=== PATIENT | female | born 1985 | race American Indian/Alaskan Native ===

== ENCOUNTER 2017-09-11 15:54 | Emergency (ER) | payer MEDICAID ==
--- NOTE | 2017-09-11 17:48 | C.PDOC ---
History Of Present Illness 31 year old female presents to the ED c/o lower abdominal pain, pelvic pain and irritation for the past week. Patient also reports slight vaginal d/c with foul odor. Patient states she is sexually active with 1 partner. Patient denies fever , back pain, nausea, vomit, urinary symptoms, recent antibiotic use. Time Seen by Provider: 09/11/17 16:54 Chief Complaint (Nursing): Female Genitourinary History Per: Patient History/Exam Limitations: no limitations Onset/Duration Of Symptoms: Days Current Symptoms Are (Timing): Still Present Quality Of Discomfort: "Pain" Associated Symptoms: Other (Vaginal d/c) Alleviating Factors: None Recent travel outside of the [place]: No Additional History Per: Patient Abnormal Vaginal Bleeding: No Past Medical History Reviewed: Historical Data, Nursing Documentation, Vital Signs Vital Signs: Last Vital Signs Temp 97.9 F 09/11/17 18:29 Pulse 73 09/11/17 18:29 Resp 16 09/11/17 18:29 BP 141/95 H 09/11/17 18:29 Pulse Ox 100 09/11/17 18:29 - Medical History PMH: Asthma Surgical History: No Surg Hx Family History: States: Unknown Family Hx - Social History Hx Tobacco Use: Yes Hx Alcohol Use: Yes Hx Substance Use: No - Immunization History Hx Tetanus Toxoid Vaccination: Yes Hx Influenza Vaccination: No Hx Pneumococcal Vaccination: No Review Of Systems Constitutional: Negative for: Fever, Chills Cardiovascular: Negative for: Chest Pain Respiratory: Negative for: Cough, Shortness of Breath Gastrointestinal: Positive for: Abdominal Pain (Lower ). Negative for: Nausea, Vomiting Genitourinary: Positive for: Vaginal Discharge (slight), Pelvic Pain. Negative for: Dysuria, Vaginal Bleeding Musculoskeletal: Negative for: Back Pain Neurological: Negative for: Weakness, Numbness Physical Exam - Physical Exam Appears: Non-toxic, No Acute Distress Skin: Normal Color, Warm, Dry Head: Atraumatic, Normacephalic Oral Mucosa: Moist Neck: Supple Chest: Symmetrical Cardiovascular: Rhythm Regular, No Murmur Respiratory: Normal Breath Sounds, No Rales, No Rhonchi, No Wheezing Gastrointestinal/Abdominal: Soft, No Tenderness, No Distention, No Rebound Pelvic: Normal External Exam, No Vaginal Bleeding, Vaginal Discharge (White), No Cervical Motion Tenderness, No Other (No external lesions) Neurological/Psych: Oriented x3, Normal Speech, Normal Cognition ED Course And Treatment O2 Sat by Pulse Oximetry: 99 (On RA) Pulse Ox Interpretation: Normal Medical Decision Making Medical Decision Making: Plan: * Genital culture collected * Urine culture collected * UA ordered Re-evaluation: 610 pm pt with vaginal irritation, slight dishcarge, no cmt, ua neg for infections. will tx for bv with urogynecology physician f/u Disposition Counseled Patient/Family Regarding: Studies Performed, Diagnosis, Need For Followup, Rx Given - Disposition Disposition: HOME/ ROUTINE Disposition Time: 18:11 Condition: STABLE Additional Instructions: Please use medication at bedtime. Do not drink alcohol while taking this medicine. Recommend no intercourse until this is cleared up. Please follow up with your almond blancher hand in a few days. Prescriptions: Metronidazole [Metrogel-Vaginal] 1 ea VG HS #7 gel Instructions: Bacterial Vaginosis (ED) Forms: [facility] (French), General Discharge Instructions - Clinical Impression Clinical Impression: Bacterial vaginosis - PA / INTERNAL MEDICINE PHYSICIAN ASSISTANT / Resident Statement MD/DO has reviewed & agrees with the documentation as recorded. - Scribe Statement The provider has reviewed the documentation as recorded by the Scribe Karson Hess All medical record entries made by the Scribe were at my direction and personally dictated by me. I have reviewed the chart and agree that the record accurately reflects my personal performance of the history, physical exam, medical decision making, and the department course for this patient. I have also personally directed, reviewed, and agree with the discharge instructions and disposition.
[2017-09-11 17:54] LABS: RBC URINE 6 /hpf (0-3); TRANSITIONAL EPITHIAL < 1 /hpf (0-3); URINE BACTERIA RARE (<OCC); URINE BILIRUBIN NEGATIVE (NEGATIVE); URINE BLOOD 1+ (NEGATIVE); URINE COLOR Yellow (YELLOW); URINE GLUCOSE (UA) NORMAL (Normal); URINE KETONE NEGATIVE (NEGATIVE); URINE LEUKOCYTE ESTERASE NEG Leu/uL (Negative); URINE PROTEIN NEGATIVE (NEGATIVE); URINE UROBILINOGEN NORMAL mg/dL (0.2-1.0); WBC URINE 1 /hpf (0-5)
[2017-09-11 18:30] VITALS: BP 141/95; PULSE 73; RESP 16; TEMP 97.9
[2017-09-11 19:55] VITALS: O2SAT 99
== END 2017-09-11 18:29 | disposition home or self-care (01) ==
LOC: C.ER 15:54
DX: N76.0 Acute vaginitis (principal)